=== PATIENT | male | born 1955 | race Caucasian/White ===

== ENCOUNTER 2017-01-13 12:55 | Emergency (ER) | payer OTHER ==
[2017-01-13] MEDS ORDERED: Bupivacaine 0.5% 30 ML SDV INJECT ONE (13:00)
--- NOTE | 2017-01-13 13:14 | EDM.PDOC ---
ED HPI GENERAL MEDICAL PROBLEM - General Stated Complaint: CUT LEFT WRIST Time Seen by Provider: 01/13/17 12:55 Source of Information: Reports: Patient, Family - History of Present Illness INITIAL COMMENTS - FREE TEXT/NARRATIVE: 61 years old w m came directly from work after he stabbed himself by accident with a work tool into his left wrist. Pt applied pressure with a paper towel to stop the bleed. Pt denied loss of function of his left arm, No N/V/D or light headedness or any other acute medical issues at this time. Pt denied a FB would be in his left forearm. Pt fractured his left distal radius in the past. Onset: Today Onset Date: 01/13/17 Onset Time: 12:40 Duration: Minutes: Quality: Reports: Burning, Dull Severity: Moderate Improves with: Reports: Other (pressure) Worsens with: Reports: Movement Context: Reports: Trauma Associated Symptoms: Reports: No Other Symptoms - Related Data Allergies Allergy/AdvReac Type Severity Reaction Status Date / Time No Known Allergies Allergy Verified 01/13/17 13:24 Home Meds: Home Meds Cephalexin [Keflex] 500 mg PO Q6HR #40 cap 01/13/17 [Rx] Simvastatin [Zocor] 10 mg PO DAILY 01/13/17 [History] Trandolapril [Mavik] 2 mg PO BEDTIME 01/13/17 [History] Trandolapril [Mavik] 4 mg PO DAILY 01/13/17 [History] Review of Systems - Review of Systems Review Of Systems: See Below Constitutional: Reports: No Symptoms Eyes: Reports: No Symptoms Ears: Reports: No Symptoms Nose: Reports: No Symptoms Mouth/Throat: Reports: No Symptoms Respiratory: Reports: No Symptoms Cardiovascular: Reports: No Symptoms GI/Abdominal: Reports: No Symptoms Genitourinary: Reports: No Symptoms Musculoskeletal: Reports: No Symptoms Skin: Reports: Wound (left forearm) Neurological: Reports: No Symptoms Psychiatric: Reports: No Symptoms ED EXAM, GENERAL - Physical Exam Exam: See Below Exam Limited By: No Limitations General Appearance: Alert, WD/WN, Mild Distress Eye Exam: Bilateral Eye: Normal Inspection Ears: Normal External Exam, Normal Canal Ear Exam: Bilateral Ear: Auricle Normal Nose: Normal Inspection, Normal Mucosa Throat/Mouth: Normal Inspection, Normal Lips Head: Atraumatic, Normocephalic Neck: Normal Inspection, Supple, Non-Tender Respiratory/Chest: No Respiratory Distress, Lungs Clear, Normal Breath Sounds, No Accessory Muscle Use Cardiovascular: Normal Peripheral Pulses, Regular Rate, Rhythm, No Edema, No Gallop Peripheral Pulses: 1+: Brachial (L), Brachial (R) GI/Abdominal: Normal Bowel Sounds, Soft, Non-Tender, No Organomegaly (Male) Exam: No Hernia Rectal (Males) Exam: Deferred Back Exam: Normal Inspection, Full Range of Motion Extremities: Other (LAC left distal forearm/wrist) Neurological: Alert, Oriented, CN II-XII Intact, Normal Cognition, Normal Gait Psychiatric: Normal Affect, Normal Mood Skin Exam: Warm, Dry, Normal Color, No Rash, Other (Laceration left distal forearm) Lymphatic: No Adenopathy ED TRAUMA EXTREMITY PROCEDURES - Laceration/Wound Repair Left Arm Lac/Wound Length In cm: 1.5 (left distal forearm) Appearance: Subcutaneous, Clean Distal NVT: No Tendon Injury Local Anesthesia - Bupivicaine (Marcaine): 0.5% Plain Local Anesthetic Volume: 4cc Skin Prep: Providone-Iodine (Betadine) Saline Irrigation (cc's): 5 Exploration/Debridement/Repair: Wound Explored, In a Bloodless Field Suture Size: 4-0 # of Sutures: 2 Repaired With: Other (ethilon) Tetanus Status Addressed: Other (pt will check with his PMD) Complications: No Course - Vital Signs Text/Narrative:: 61 years old w m came directly from work after he stabbed himself by accident with a work tool into his left wrist. Pt applied pressure with a paper towel to stop the bleed. Pt denied loss of function of his left arm, No N/V/D or light headedness or any other acute medical issues at this time. Pt denied a FB would be in his left forearm. Pt fractured his left distal radius in the past. PE: laceration with non pulsatile bleed left distal forearm Imaging: Left forearm/wrist: NAD Labs: Not indicated Procedure: Please see note above Impression: LAC left distal forearm, repaired in the ed. Tx: Rocephine, wound care Reexam: impoved Plan: D/C with instructions Last Recorded V/S: Last Vital Signs Temp 36.4 C 01/13/17 13:14 Pulse 73 01/13/17 15:29 Resp 16 01/13/17 15:29 BP 156/94 H 01/13/17 15:29 Pulse Ox 99 01/13/17 15:29 - Orders/Labs/Meds Orders: Active Orders 24 hr Category Date Time Status Wrist Comp Min 3V Lt [CR] Stat Exams 01/13/17 13:22 Taken Meds: Medications Discontinued Medications Generic Name Dose Route Start Last Admin Trade Name Sola PRN Reason Stop Dose Admin Bupivacaine HCl 50 ml 01/13/17 15:04 Marcaine 0.5% INFILT 01/13/17 15:05 ONETIME ONE Departure - Departure Time of Disposition: 15:21 Disposition: Home, Self-Care 01 Condition: Good Clinical Impression: Laceration of left forearm Qualifiers: Encounter type: initial encounter Qualified Code(s): S51.812A - Laceration without foreign body of left forearm, initial encounter - Discharge Information Prescriptions: Cephalexin [Keflex] 500 mg PO Q6HR #40 cap Instructions: Laceration Care, Adult, [id number] Referrals: PCP,None [Primary Care Provider] - Forms: ED Department Discharge, ED Return to Work/School Form Additional Instructions: Rest, ICE and elevation, please take the Abx as recommended, wound check in 2-3 days, suture removal in 10 days. Please f/u, please come back if the symptoms get worse acutely. Please apply the CHAPO wrap for next 24 hours. - My Orders Last 24 Hours: My Active Orders 01/13/17 13:22 Wrist Comp Min 3V Lt [CR] Stat - Assessment/Plan Last 24 Hours: My Active Orders 01/13/17 13:22 Wrist Comp Min 3V Lt [CR] Stat
[2017-01-13] MEDS ORDERED: Bupivacaine 0.5% 50 ML MDV INFILT ONE (15:04)
[2017-01-13 15:31] VITALS: BP 156/94
--- NOTE | 2017-01-16 13:32 | CR ---
INDICATION: Welding wire punctured wrist. LEFT WRIST: Three views of the left wrist revealed evidence of a previous distal radial and ulnar fracture site with post ORIF changes at the distal shaft and metaphysis of the radius with intact appearing plate and [address]. Degenerative changes are noted at the radiocarpal joints and minimally at the navicular multangular joints with mild to moderate degenerative changes at the first metacarpal carpal joint. Mild degenerative changes are also noted at the interphalangeal joint of the thumb with minimal degenerative changes at the first metacarpophalangeal joint and second metacarpophalangeal joint. IMPRESSION: 1. No retained foreign body of metallic appearance identified. 2. No acute fracture or dislocation. 3. Post ORIF, satisfactory appearance - no old films available for comparison, however. 4. Osteoarthritis. MTDD
== END 2017-01-13 15:29 | disposition home or self-care (01) ==
LOC: FB.ED 12:55
DX: S51.812A Laceration without foreign body of left forearm, initial encounter (principal); Z79.2 Long term (current) use of antibiotics; Z79.899 Other long term (current) drug therapy; W27.8XXA Contact with other nonpowered hand tool, initial encounter; Y92.69 Other specified industrial and construction area as the place of occurrence of the external cause; Y99.0 Civilian activity done for income or pay
CPT/HCPCS: 12001; 73110-LT; 99282